=== PATIENT | female | born 1975 | race Caucasian/White ===

== ENCOUNTER 2018-02-08 21:03 | Emergency (ER) | payer OTHER ==
[2018-02-08 21:14] VITALS: BP 176/92; PULSE 92; TEMP 98; BMI 43.0
[2018-02-08] MEDS ORDERED: ACETAMINOPHEN 325 MG TABLET (FP) PO ONE (22:10)
--- NOTE | 2018-02-08 22:10 | PDOC ---
History of Present Illness - General Chief Complaint: Respiratory Stated Complaint: CONGESTION, COUGHING Time Seen by Provider: 02/08/18 22:02 History Source: Patient - History of Present Illness Initial Comments: 02/08/18 22:52 43 year old female with throat pain, nasal congestion and cough. denies fever chills at home. diagnosed with strep pharyngitis,. Past History - Past Medical History Allergies/Adverse Reactions: Allergies Allergy/AdvReac Type Severity Reaction Status Date / Time No Known Allergies Allergy Verified 02/08/18 21:13 Home Medications: Ambulatory Orders Amoxicillin - [Amoxicillin 500mg Capsule -] 500 mg PO BID #20 capsule 02/08/18 Fluticasone Prop 0.05% Nasal [Flonase -] 1 - 2 spray NS BID #1 spray.pump COPD: No Other medical history: carpel tunnel - Suicide/Smoking/Psychosocial Hx Smoking History: Never smoked Review of Systems - Review of Systems Able to Perform ROS?: Yes Is the patient limited [place] proficient: No Constitutional: No: Symptoms Reported, See HPI, Chills, Diaphoresis, Fever, Loss of Appetite, Malaise, Night Sweats, Weakness, Weight Stable, Unintentional Wgt. Loss, Unexplained wgt Loss, Other HEENTM: Yes: Nose Congestion, Throat Pain Respiratory: Yes: Cough *Physical Exam - Vital Signs Last Vital Signs Temp Pulse Resp BP Pulse Ox 98 F 92 H 18 176/92 H 99 02/08/18 21:10 02/08/18 21:10 02/08/18 21:10 02/08/18 21:10 02/08/18 21:10 - Physical Exam General Appearance: Yes: Appropriately Dressed HEENT: positive: Tonsillar Erythema, Nasal Congestion, Other (=+ lymphadenopathy ) Respiratory/Chest: positive: Lungs Clear, Normal Breath Sounds Gastrointestinal/Abdominal: positive: Normal Bowel Sounds, Soft Extremity: positive: Normal Capillary Refill, Normal Inspection, Normal Range of Motion Integumentary: positive: Normal Color, Dry, Warm Neurologic: positive: Fully Oriented, Alert Moderate Sedation - Procedure Monitoring Vital Signs: Procedure Monitoring Vital Signs Temperature 98 F 02/08/18 21:10 Pulse Rate 92 H 02/08/18 21:10 Respiratory Rate 18 02/08/18 21:10 Blood Pressure 176/92 H 02/08/18 21:10 O2 Sat by Pulse Oximetry (%) 99 02/08/18 21:10 *DC/Admit/Observation/Transfer Diagnosis at time of Disposition: Pharyngitis Qualifiers: Pharyngitis/tonsillitis etiology: unspecified etiology Qualified Code(s): J02.9 - Acute pharyngitis, unspecified - Discharge Dispostion Disposition: HOME - Prescriptions Prescriptions: Amoxicillin - [Amoxicillin 500mg Capsule -] 500 mg PO BID #20 capsule Fluticasone Prop 0.05% Nasal [Flonase -] 1 - 2 spray NS BID #1 spray.pump - Referrals - Patient Instructions Printed Discharge Instructions: DI for Pharyngitis/Tonsillopharyngitis -- Adult Additional Instructions: drink plenty of fluids use flonase as prescribed follow up with your doctor as soon as possible - Post Discharge Activity Forms/Work/School Notes: Back to Work
[2018-02-08] MEDS ORDERED: ACETAMINOPHEN 325 MG TABLET (FP) ONE (22:12)
== END 2018-02-08 23:04 | disposition home or self-care (01) ==
LOC: JERFT 21:03
DX: J02.9 Acute pharyngitis, unspecified (principal)
CPT/HCPCS: 87070; 87077; 87880; 99281-25